=== PATIENT | female | born 1955 | race Caucasian/White ===

== ENCOUNTER 2021-03-16 07:06 | Observation (INO) | payer OTHER ==
[~2021-03-16] VITALS: Ht 172.7 cm; Wt 73.0 kg
[~2021-03-16 07:06] MED LIST: CLON2TAB9 PO; METO50TA4 PO
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
--- NOTE | 2021-03-16 07:21 | NUR ---
pt answering some questions and following some commands but is very drowsy and not answering all questions
--- NOTE | 2021-03-16 07:23 | NUR ---
per report, pt also takes: sertraline, clonazepam, metoprolol, atorvastatin, azitamide per report, it is unkown if pt took these medications today. pt unable to answer
--- NOTE | 2021-03-16 07:25 | NUR ---
per report, [facility] VESSEL CAPTAIN [id number]
--- NOTE | 2021-03-16 07:33 | NUR ---
pt : Jose [phone]
--- NOTE | 2021-03-16 07:35 | NUR ---
pt unable to perform breathalyzer
[2021-03-16 07:38] LABS: MEAN CORPUSCULAR HEMOGLOBIN 35.5 pg (27.0-34.8); MEAN CORPUSCULAR HGB CONC 34.7 g/dL (32.4-35.8); MEAN PLATELET VOLUME 8.2 fL (7.4-10.4); PLATELET COUNT 190 x10^3/uL (130-400); RED BLOOD COUNT 4.51 x10^6/uL (3.82-5.3); RED CELL DISTRIBUTION WIDTH 12.4 % (9.6-15.2)
--- NOTE | 2021-03-16 07:41 | NUR ---
Dr. Muniz has been to bedside. pt to remain on library monitor. EKG has been to bedside. lab has been to bedside to draw
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
[2021-03-16 08:03] LABS: ALANINE AMINOTRANSFERASE 98 U/L (12-78); ALKALINE PHOSPHATASE 72 U/L (45-117); BILIRUBIN,TOTAL 0.4 mg/dL (0.2-1.0); CREATININE 0.76 mg/dL (0.55-1.02); TOTAL PROTEIN 7.2 g/dL (6.4-8.2)
[2021-03-16 08:19] LABS: ANION GAP 11 mmol/L (5-15); CHLORIDE 108 mmol/L (98-107)
[2021-03-16 08:20] LABS: CALCIUM 8.3 mg/dL (8.5-10.1); SALICYLATE LEVEL < 1.7 mg/dL (2.8-20.0)
[2021-03-16 08:22] LABS: MD YES
[2021-03-16 08:25] LABS: <PLATELET ESTIMATE> ADEQUATE; <PLT MORPHOLOGY> NORMAL PLT MORPH; BASOS#(MANUAL) 0.12 x10^3/uL (0-0.1); BASOS% (MANUAL) 2 % (0-1); EOS#(MANUAL) 0.18 x10^3/uL (0.0-0.4); EOS% (MANUAL) 3 % (1-7); LYMPH#(MANUAL) 2.34 x10^3/uL (1-3.4); LYMPHS% (MANUAL) 39 % (22-44); MONOS#(MANUAL) 0.42 x10^3/uL (0.3-2.7); MONOS% (MANUAL) 7 % (2-9); REACTIVE LYMPHS # (MANUAL) 0.18 x10^3/uL (0-0); REACTIVE LYMPHS % (MANUAL) 3 % (0-0); SEG#(MANUAL) 2.76 x10^3/uL (1.8-6.8); SEGS% (MANUAL) 46 % (42-75)
--- NOTE | 2021-03-16 08:25 | NUR ---
pt attempting to get out of bed and has repeatedly removed her O2 and her mask. pt has been given frequent re-orientation regarding her where she is and why attempting to get pt to re-position herself on bed. pt has been swinging her arms at sitter in attempt to hit them attemtping to calm pt. pt swearing at staff
--- NOTE | 2021-03-16 08:40 | NUR ---
pt continues to need frequent reminder to keep her O2 pt uncooperative
--- NOTE | 2021-03-16 09:21 | NUR ---
no chanes. pt resting on gurney. pt contines to refuse to cooperate with urine specimen collection
--- NOTE | 2021-03-16 10:00 | NUR ---
pt calmer and now agrees to purewick placement. pt has been incontinent of urine. pt cleaned and sean care given. fresh linens applied. purewick placed
--- NOTE | 2021-03-16 10:20 | NUR ---
pt has produced no urine pt has pulled out her IV. bleeding controlled and dressing placed by graphic art sales representative student
--- NOTE | 2021-03-16 10:35 | NUR ---
pt now becoming agitated. pt yelling and calling this RN a "witch" and a "bitch" and a "[employer]" attempting o calm pt.
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
--- NOTE | 2021-03-16 11:05 | NUR ---
pt agrees to lay [place] in position of comfort. pt tearful. no respiratoy distress. monitring equipment in place
--- NOTE | 2021-03-16 11:30 | NUR ---
pt resting on gurney in position of comfort with eyes closed room secure. sitter present for safety
--- NOTE | 2021-03-16 12:11 | NUR ---
pt resting in position of comfort on rwymore room secure. sitter present for safety
--- NOTE | 2021-03-16 13:00 | NUR ---
pt continues resting on gurney with eyes closed. no apparent distress room secure. sitter present for safety report to Baldomero TRACY who assumes care of this pt
[2021-03-16 14:21] VITALS: BP 110/88
--- NOTE | 2021-03-16 14:21 | NUR ---
PT KEEPS TRYING TO GET OUT BED. REMINDED TO STAY IN [facility]. SITTER PRESENT
--- NOTE | 2021-03-16 15:09 | NUR ---
PT RESTING, SITTER PRESENT
--- NOTE | 2021-03-16 16:12 | NUR ---
ASSISTED PT TO [facility]. PT COOPERTIVE AND TALKING. NEW LINENS PROVIDED.
--- NOTE | 2021-03-16 17:52 | NUR ---
ASSISTED PT GETTING DRESSED. [facility] AT 1800
--- NOTE | 2021-03-16 18:14 | NUR ---
Patient given discharge instructions and they have confirmed that they understand the instructions. Patient DC [facility] via wheelchair
== END 2021-03-16 18:16 | disposition home or self-care (01) ==
LOC: ED 07:45 → EDIP 12:54 → UNDOADMOB 12:54
PROVIDERS: ADMIT Emergency Medicine; ATTEND Emergency Medicine
DX: T42.4X2A Poisoning by benzodiazepines, intentional self-harm, initial encounter (principal); F10.220 Alcohol dependence with intoxication, uncomplicated; F33.0 Major depressive disorder, recurrent, mild; F42.9 Obsessive-compulsive disorder, unspecified; F43.10 Post-traumatic stress disorder, unspecified; Z79.899 Other long term (current) drug therapy
CPT/HCPCS: 36415; 71045; 80053; 80299; 80320; 80329; 85025; 93005; 99285; G0378; G0480